=== PATIENT | female | born 2000 | race Caucasian/White ===

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

== ENCOUNTER 2022-06-16 08:17 | Inpatient (IN) | payer MEDICAID ==
[2022-06-16] VITALS (23 sets, daily range): BP systolic 96–141; BP diastolic 56–96; PULSE 69–109; TEMP 97.5–97.9
[~2022-06-16] VITALS: Ht 157.5 cm; Wt 76.5 kg
[~2022-06-16 08:17] MED LIST: BENADRYL25 M2 PO; PRENATAL MVI; TYLENOL 500MG500 MG PO
[2022-06-16 09:24] LABS: BASO % 0.4 % (0.0-2.0); EOS # 0.1 K/mm3 (0.0-0.7); EOS % 0.6 % (0.0-4.0); GRAN # 6.2 K/mm3 (1.4-6.5); GRAN % 77.7 % (42.2-75.2); HEMOGLOBIN 12.2 g/dl (12.5-16.0); LYMPH # 1.4 K/mm3 (1.2-3.4); LYMPH % 17.2 % (20.0-51.0); MEAN CELL VOLUME 79 fl (80.0-100.0); MEAN CORPUSCULAR HEMOGLOBIN 26 pg (27-31); MEAN CORPUSCULAR HGB CONC 33 g/dl (33.0-37.0); MEAN PLATELET VOLUME 10.9 fl (7.4-10.4); MONO # 0.3 K/mm3 (0.1-0.6); PLATELET COUNT 321 K/mm3 (130-400); RED BLOOD COUNT 4.67 M/mm3 (4.10-5.30); REDCELL DISTRIBUTION WIDTH-CV 15.1 % (11.5-14.5)
--- NOTE | 2022-06-16 09:25 | NUR ---
0925 WILBUR BELTRÁN, IN ROOM FOR EPIDURAL PLACMENT. LR BOLUS INFUSING PER PROTOCOL. PULSE OX IN PLACE. VS STABLE. EFM TRACING CAT 1. 0933 TEST DONE ADMINISTERED PER WILBUR BELTRÁN. PT TOLERATED WELL. 0940 PT RETURNED TO LEFT SIDE, COMFORTABLE IN BED. EFM TRACING CAT 1. VS STABLE. BP DECREASED SLIGHLTY. WILL FOLLOW PLAN OF CARE.
[2022-06-16 09:46] LABS: ALBUMIN 2.5 gm/dL (3.5-5.0); BILIRUBIN,TOTAL 0.7 mg/dL (0.2-1.2); CREATININE, serum 0.67 mg/dL (0.57-1.11); POTASSIUM 3.6 mmol/L (3.5-4.5); TOTAL PROTEIN 7.2 gm/dL (6.2-8.1)
[2022-06-16 09:50] LABS: HEMATOCRIT 36.8 % (37.0-47.0)
--- NOTE | 2022-06-16 12:44 | NUR ---
1244 PT CALLED OUT FEELING INCREASE IN PRESSURE. THIS RN IN ROOM TO PERFORM SVE. SVE COMPLETE AT THIS TIME. DR. DAVIS NOTIFIED. NURSERY AND CHARGE NOTIFIED. 1250 SUSAN ON UNIT, ROOM SET FOR DELIVERY. 1304 OF VIABLE MALE INFANT PER DR. DAVIS. BABY PLACED ON MATERNAL ABDOMEN AND CARE ASSUMED BY NURSERY RN. PERINEUM INTACT. [address] DAVIS. PT TOLERATED WELL. LOCHIA WNL. FUNDUS FIRM AT U. VS STABLE. 1310 ICE PACK PLACED. SHEET CHANGED. BED PUT BACK TOGETHER. FUNDUS FIRM, SCANT LOCHIA. WILL CONTINUE WITH PLAN OF CARE.
--- NOTE | 2022-06-16 16:00 | NUR ---
1600 PT ABLE TO LIFT LEGS BILATERALLY. LISA STEADY USED. PT TO BATHROOM, ABLE TO VOID. NEW GOWN AND PAD PLACED. EPIDURAL CATHETER REMOVED. PT MOVED TO ROOM. COMFORTABLE IN BED.
[2022-06-17 00:40] VITALS: BP 110/65; PULSE 65; TEMP 97.8
[2022-06-17 05:10] VITALS: BP 118/62; PULSE 76; TEMP 97.9
[2022-06-17 07:40] VITALS: BP 109/63; PULSE 69; TEMP 97.7
[2022-06-17 07:50] LABS: ALBUMIN 2.3 gm/dL (3.5-5.0); BILIRUBIN,TOTAL 1.2 mg/dL (0.2-1.2); CALCIUM 9.1 mg/dL (8.4-10.2); CREATININE, serum 0.67 mg/dL (0.57-1.11); POTASSIUM 3.7 mmol/L (3.5-4.5); TOTAL PROTEIN 6.4 gm/dL (6.2-8.1)
[2022-06-17] MEDS ORDERED: IBU800 M1 PO (09:06)
--- NOTE | 2022-06-17 09:36 | NUR ---
Initial visit; Patient thanked [employer] for offering congratulations and God's blessings for the of her son. [employer] offered "Special Blessings" at mom's request. [employer] prays for a healthy, happy life for her son.
[2022-06-17 17:10] VITALS: BP 109/63; PULSE 77; TEMP 98.4
[2022-06-17 19:00] VITALS: BP 108/63; PULSE 65
--- NOTE | 2022-06-17 19:00 | NUR ---
REPORT RCVD FROM ANDRAE CHIN.
[2022-06-18 07:39] LABS: ALBUMIN 2.3 gm/dL (3.5-5.0); BILIRUBIN,TOTAL 0.7 mg/dL (0.2-1.2); CALCIUM 8.9 mg/dL (8.4-10.2); CREATININE, serum 0.63 mg/dL (0.57-1.11); POTASSIUM 3.7 mmol/L (3.5-4.5); TOTAL PROTEIN 6.4 gm/dL (6.2-8.1)
[2022-06-18 07:55] VITALS: BP 112/65; PULSE 67; TEMP 98
== END 2022-06-18 11:25 | disposition home or self-care (01) | DRG 805 ==
LOC: LDRO 08:17 → LDR 08:53 → OB 08:53
PROVIDERS: ADMIT Student in an Organized Health Care Education/Training Program
PROC: 10E0XZZ Delivery of Products of Conception, External Approach (ICD-10-PCS; principal; 2022-06-16)
DX: O26.62 Liver and biliary tract disorders in childbirth (principal); K83.1 Obstruction of bile duct; Z37.0 Single live birth; O99.824 Streptococcus B carrier state complicating childbirth; O26.893 Other specified pregnancy related conditions, third trimester; L29.9 Pruritus, unspecified; O99.02 Anemia complicating childbirth; D64.9 Anemia, unspecified; Z3A.39 39 weeks gestation of pregnancy; Z23 Encounter for immunization
CPT/HCPCS: J2540; J2590; J2795; J7120

== ENCOUNTER 2022-07-02 19:02 | Emergency (ER) | payer MEDICAID ==
[~2022-07-02] VITALS: Ht 157.5 cm; Wt 68.2 kg
[~2022-07-02 19:02] MED LIST changes: +IBU800 M1 PO
[2022-07-02 19:56] LABS: BASO % 0.3 % (0.0-2.0); EOS # 0.4 K/mm3 (0.0-0.7); EOS % 3.3 % (0.0-4.0); GRAN # 9.5 K/mm3 (1.4-6.5); GRAN % 81.5 % (42.2-75.2); HEMATOCRIT 42.5 % (37.0-47.0); HEMOGLOBIN 13.8 g/dl (12.5-16.0); LYMPH # 1.3 K/mm3 (1.2-3.4); LYMPH % 11.4 % (20.0-51.0); MEAN CELL VOLUME 81 fl (80.0-100.0); MEAN CORPUSCULAR HEMOGLOBIN 26 pg (27-31); MEAN CORPUSCULAR HGB CONC 33 g/dl (33.0-37.0); MEAN PLATELET VOLUME 11.6 fl (7.4-10.4); MONO # 0.4 K/mm3 (0.1-0.6); MONO % 3.2 % (1.7-9.3); PLATELET COUNT 250 K/mm3 (130-400); RED BLOOD COUNT 5.24 M/mm3 (4.10-5.30); REDCELL DISTRIBUTION WIDTH-CV 15.1 % (11.5-14.5)
[2022-07-02] MEDS ORDERED: CEPHALEXIN500 M1 PO (20:13)
[2022-07-02 20:25] LABS: ALBUMIN 3.6 gm/dL (3.5-5.0); BILIRUBIN,TOTAL 0.4 mg/dL (0.2-1.2); CALCIUM 9.9 mg/dL (8.4-10.2); CREATININE, serum 0.79 mg/dL (0.57-1.11); POTASSIUM 3.7 mmol/L (3.5-4.5); TOTAL PROTEIN 8.6 gm/dL (6.2-8.1)
[2022-07-02 20:43] VITALS: BP 110/68; PULSE 95; TEMP 99.8
== END 2022-07-02 20:47 | disposition home or self-care (01) ==
LOC: COL.ER 19:02
PROVIDERS: Physician Assistant
DX: O91.23 Nonpurulent mastitis associated with lactation (principal)
CPT/HCPCS: J0696; J1885; J7030